=== PATIENT | female | born 1980 | race Caucasian/White ===

== ENCOUNTER → 2017-02-19 | Outpatient (CLI) | payer MEDICAID | LOC: M OUTALCOH 12:54 | PROVIDERS: ATTEND Psychiatry & Neurology Psychiatry | DX: F12.20 Cannabis dependence, uncomplicated (principal); F10.10 Alcohol abuse, uncomplicated ==

== ENCOUNTER → 2017-04-16 | Outpatient (CLI) | payer MEDICAID | LOC: M OUTALCOH 12:53 | PROVIDERS: ATTEND Psychiatry & Neurology Psychiatry | DX: F10.20 Alcohol dependence, uncomplicated (principal); F12.20 Cannabis dependence, uncomplicated ==

== ENCOUNTER 2017-04-30 15:55 | Outpatient (RCR) | payer MEDICAID | END 2017-05-01 | LOC: M OUTALCOH 15:55 | PROVIDERS: ATTEND Psychiatry & Neurology Psychiatry | DX: F10.20 Alcohol dependence, uncomplicated (principal); F12.20 Cannabis dependence, uncomplicated ==

== ENCOUNTER 2017-05-15 10:34 | Outpatient (RCR) | payer MEDICAID | END 2017-06-01 | LOC: M OUTALCOH 05-20 16:00 | DX: F10.20 Alcohol dependence, uncomplicated (principal); F12.20 Cannabis dependence, uncomplicated ==

== ENCOUNTER 2017-06-03 16:00 | Outpatient (RCR) | payer MEDICAID | END 2017-07-02 | LOC: M OUTALCOH 06-06 14:00 | DX: F10.20 Alcohol dependence, uncomplicated (principal); F12.20 Cannabis dependence, uncomplicated ==

== ENCOUNTER → 2018-03-28 | Outpatient (CLI) | payer OTHER | LOC: M RAD 08:27 | DX: M51.27 Other intervertebral disc displacement, lumbosacral region (principal) | CPT/HCPCS: 72148 ==

== ENCOUNTER 2018-07-01 16:00 | Outpatient (RCR) | payer MEDICAID | END 2018-07-02 | LOC: M OUTALCOH 16:00 | PROVIDERS: ATTEND Psychiatry & Neurology Psychiatry | DX: F10.20 Alcohol dependence, uncomplicated (principal); F12.20 Cannabis dependence, uncomplicated ==

== ENCOUNTER 2018-09-28 08:45 | Outpatient (RCR) | payer MEDICAID | END 2018-09-29 | LOC: M OUTALCOH 08:45 | PROVIDERS: ATTEND Psychiatry & Neurology Psychiatry | DX: F10.20 Alcohol dependence, uncomplicated (principal); F12.20 Cannabis dependence, uncomplicated ==

== ENCOUNTER → 2018-10-30 | Outpatient (RCR) | payer MEDICAID | LOC: M OUTALCOH 09-30 07:44 | PROVIDERS: ATTEND Psychiatry & Neurology Psychiatry | DX: F10.20 Alcohol dependence, uncomplicated (principal); F12.20 Cannabis dependence, uncomplicated ==

== ENCOUNTER 2018-11-27 13:00 | Outpatient (RCR) | payer MEDICAID | END 2018-11-29 | LOC: M OUTALCOH 13:00 | PROVIDERS: ATTEND Psychiatry & Neurology Psychiatry | DX: F10.20 Alcohol dependence, uncomplicated (principal); F12.20 Cannabis dependence, uncomplicated ==

== ENCOUNTER → 2018-12-30 | Outpatient (RCR) | payer MEDICAID | LOC: M OUTALCOH 12-01 14:38 | PROVIDERS: ATTEND Psychiatry & Neurology Psychiatry | DX: F10.20 Alcohol dependence, uncomplicated (principal); F12.20 Cannabis dependence, uncomplicated ==

== ENCOUNTER 2019-01-27 14:48 | Outpatient (RCR) | payer MEDICAID | END 2019-01-30 | LOC: M OUTALCOH 14:48 | PROVIDERS: ATTEND Psychiatry & Neurology Psychiatry | DX: F10.20 Alcohol dependence, uncomplicated (principal); F12.20 Cannabis dependence, uncomplicated ==

== ENCOUNTER → 2019-03-01 | Outpatient (RCR) | payer MEDICAID | LOC: M OUTALCOH 02-03 14:55 | PROVIDERS: ATTEND Psychiatry & Neurology Psychiatry | DX: F10.20 Alcohol dependence, uncomplicated (principal); F12.20 Cannabis dependence, uncomplicated ==

== ENCOUNTER → 2019-04-01 | Outpatient (RCR) | payer MEDICAID | LOC: M OUTALCOH 03-03 08:31 | PROVIDERS: ATTEND Psychiatry & Neurology Psychiatry | DX: F10.20 Alcohol dependence, uncomplicated (principal); F12.20 Cannabis dependence, uncomplicated ==

== ENCOUNTER 2019-04-26 14:00 | Outpatient (RCR) | payer MEDICAID | END 2019-05-01 | LOC: M OUTALCOH 14:00 | PROVIDERS: ATTEND Psychiatry & Neurology Psychiatry | DX: F10.20 Alcohol dependence, uncomplicated (principal); F12.20 Cannabis dependence, uncomplicated ==

== ENCOUNTER 2019-05-20 16:00 | Outpatient (RCR) | payer MEDICAID | END 2019-06-01 | LOC: M OUTALCOH 16:00 | PROVIDERS: ATTEND Psychiatry & Neurology Psychiatry | DX: F10.20 Alcohol dependence, uncomplicated (principal); F12.20 Cannabis dependence, uncomplicated ==

== ENCOUNTER 2019-06-29 15:57 | Outpatient (RCR) | payer MEDICAID | END 2019-07-02 | LOC: M OUTALCOH 15:57 | PROVIDERS: ATTEND Psychiatry & Neurology Psychiatry | DX: F10.20 Alcohol dependence, uncomplicated (principal); F12.20 Cannabis dependence, uncomplicated ==

== ENCOUNTER 2019-07-26 16:00 | Outpatient (RCR) | payer MEDICAID | END 2019-07-31 | LOC: M OUTALCOH 16:00 | PROVIDERS: ATTEND Psychiatry & Neurology Addiction Medicine | DX: F10.20 Alcohol dependence, uncomplicated (principal); F12.20 Cannabis dependence, uncomplicated ==

== ENCOUNTER 2019-08-27 11:27 | Outpatient (RCR) | payer MEDICAID | END 2019-08-31 | LOC: M OUTALCOH 11:27 | PROVIDERS: ATTEND Psychiatry & Neurology Addiction Medicine | DX: F10.20 Alcohol dependence, uncomplicated (principal); F12.20 Cannabis dependence, uncomplicated ==

== ENCOUNTER → 2019-09-30 | Outpatient (RCR) | payer MEDICAID | LOC: M OUTALCOH 09-03 15:23 | PROVIDERS: ATTEND Psychiatry & Neurology Addiction Medicine | DX: F10.20 Alcohol dependence, uncomplicated (principal); F12.20 Cannabis dependence, uncomplicated ==

== ENCOUNTER 2019-10-28 09:00 | Outpatient (RCR) | payer MEDICAID | END 2019-10-31 | LOC: M OUTALCOH 09:00 | PROVIDERS: ATTEND Psychiatry & Neurology Addiction Medicine | DX: F10.20 Alcohol dependence, uncomplicated (principal); F12.20 Cannabis dependence, uncomplicated ==

== ENCOUNTER 2019-11-02 11:00 | Outpatient (RCR) | payer MEDICAID | END 2019-11-30 | LOC: M OUTALCOH 11:00 | PROVIDERS: ATTEND Psychiatry & Neurology Addiction Medicine | DX: F10.20 Alcohol dependence, uncomplicated (principal); F12.20 Cannabis dependence, uncomplicated ==

== ENCOUNTER → 2020-04-21 | Outpatient (CLI) | payer MEDICAID | LOC: M OUTALCOH 07:40 | PROVIDERS: ATTEND Psychiatry & Neurology Addiction Medicine | DX: Z13.39 Encounter for screening examination for other mental health and behavioral disorders (principal); F10.20 Alcohol dependence, uncomplicated; F12.10 Cannabis abuse, uncomplicated ==

== ENCOUNTER → 2020-05-01 | Outpatient (RCR) | payer MEDICAID | LOC: M OUTALCOH 15:05 | PROVIDERS: ATTEND Psychiatry & Neurology Addiction Medicine | DX: F10.20 Alcohol dependence, uncomplicated (principal); F12.20 Cannabis dependence, uncomplicated ==

== ENCOUNTER → 2023-08-13 | Outpatient (CLI) | payer MEDICAID | LOC: M OUTALCOH 07:19 | PROVIDERS: ATTEND Psychiatry & Neurology Psychiatry | DX: Z03.89 Encounter for observation for other suspected diseases and conditions ruled out (principal) ==

== ENCOUNTER 2023-09-17 11:31 | Emergency (ER) | payer MEDICAID, OTHER ==
[~2023-09-17] VITALS: Ht 149.9 cm; Wt 67.7 kg
[2023-09-17] MEDS ORDERED: DOXY100T (11:46)
[2023-09-17] MEDS ORDERED: PREDOPD (11:46)
[2023-09-17] MEDS ORDERED: VENL37.598 (11:46)
[2023-09-17 12:03] VITALS: BP 176/99; TEMP 97.8; O2SAT 97
== END 2023-09-17 14:36 | disposition home or self-care (01) ==
LOC: M ED 12:33
DX: F10.10 Alcohol abuse, uncomplicated (principal); F06.30 Mood disorder due to known physiological condition, unspecified; F32.A Depression, unspecified; Z88.8 Allergy status to other drugs, medicaments and biological substances; Z79.2 Long term (current) use of antibiotics; Z79.899 Other long term (current) drug therapy

== ENCOUNTER → 2024-06-03 | Outpatient (CLI) | payer OTHER ==
[~2024-06-03] MED LIST: DOXY100T PO; HYDR1CAP25 PO; LEXA1TAB PO; METR60GE3 TOP; PREDOPD; PREDOPD OP; SPIR-10 PO; VENL37.598
== END ==
LOC: M ONCR 08:59
PROVIDERS: ATTEND General Practice
DX: D05.11 Intraductal carcinoma in situ of right breast (principal); Z90.11 Acquired absence of right breast and nipple; Z90.49 Acquired absence of other specified parts of digestive tract; Z98.51 Tubal ligation status; Z80.6 Family history of leukemia; Z80.3 Family history of malignant neoplasm of breast; Z80.42 Family history of malignant neoplasm of prostate; Z88.8 Allergy status to other drugs, medicaments and biological substances; Z79.2 Long term (current) use of antibiotics; Z79.899 Other long term (current) drug therapy

== ENCOUNTER 2024-06-17 10:53 | Outpatient (RCR) | payer OTHER ==
[2024-06-24] MEDS ORDERED: ESCITALOPRAM (09:12)
[2024-06-24] MEDS ORDERED: B12-1CHW PO (09:12)
[2024-06-24] MEDS ORDERED: ERGO500029 (09:12)
[2024-06-24] MEDS ORDERED: LEVO25TA5 PO (09:13)
[2024-06-24] MEDS ORDERED: TAMO20TA8 PO (09:36)
== END 2024-07-02 ==
LOC: M ONCR 10:53
PROVIDERS: ATTEND General Practice
DX: Z51.0 Encounter for antineoplastic radiation therapy (principal); D05.11 Intraductal carcinoma in situ of right breast

== ENCOUNTER → 2024-07-30 | Outpatient (RCR) | payer OTHER ==
[~2024-07-30] MED LIST changes: +B12-1CHW PO; +ERGO500029; +ESCITALOPRAM; +LEVO25TA5 PO; +TAMO20TA8 PO; +TRIA1CR80 TOP
== END ==
LOC: M ONCR 07-13 10:33
PROVIDERS: ATTEND General Practice
DX: Z51.0 Encounter for antineoplastic radiation therapy (principal); D05.11 Intraductal carcinoma in situ of right breast

== ENCOUNTER 2024-08-10 10:45 | Outpatient (RCR) | payer OTHER ==
[~2024-08-10 10:45] MED LIST changes: +CLOB5CR TOP
== END 2024-08-30 ==
LOC: M ONCR 10:45
PROVIDERS: ATTEND General Practice
DX: Z51.0 Encounter for antineoplastic radiation therapy (principal); D05.11 Intraductal carcinoma in situ of right breast